=== PATIENT | male | born 1990 | race African-American/Black ===

== ENCOUNTER 2020-08-29 07:50 | Emergency (ER) | payer OTHER, SELFPAY ==
[2020-08-29] MEDS ORDERED: Ketorolac Tromethamine 30 MG/ML VIAL ONE (08:05)
[2020-08-29] MEDS ORDERED: Bacitracin 1 PK ONE (08:53)
== END 2020-08-29 09:20 | disposition home or self-care (01) ==
LOC: BURERS 07:50
DX: S00.83XA Contusion of other part of head, initial encounter (principal); M62.838 Other muscle spasm; V89.2XXA Person injured in unspecified motor-vehicle accident, traffic, initial encounter
CPT/HCPCS: 70110; 71045; 72040; 96372; G0390; J1885